=== PATIENT | male | born 1960 | race American Indian/Alaskan Native ===

== ENCOUNTER 2018-03-30 10:20 | Observation (INO) | payer MEDICAID, OTHER ==
[2018-03-30] MEDS ORDERED: Sodium Chloride 0.9% 1,000 ML IV ONE (10:33)
[2018-03-30] MEDS ORDERED: Sodium Chloride 0.9% 10 ML Syringe FLUSH PRN (10:35)
[2018-03-30] MEDS: Nitroglycerin 0.4 MG Tab.SL SL PRN ×3 (10:35→10:46)
[2018-03-30] MEDS: Nitroglycerin 0.4 MG Tab.SL ONE ×2 (10:35→10:43)
[2018-03-30] MEDS ORDERED: Sodium Chloride 0.9% 2.5 ML Syringe FLUSH PRN (10:35)
--- NOTE | 2018-03-30 10:40 | EDM.PDOC ---
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 He did take his aspirin today and states that the ambulance crew gave him for 5 tablets of aspirin to chew Patient was diaphoretic on admission Patient denies being diabetic he denies any difficulty chewing or swallowing denies have any cold fever or flulike symptoms Denies having any diarrhea Review of Systems: As per history of present illness and below otherwise all systems reviewed and negative. Past medical history: As per history of present illness and as reviewed below otherwise noncontributory. Surgical history: As per history of present illness and as reviewed below otherwise noncontributory. Social history: No reported history of drug or alcohol abuse. Family history: As per history of present illness and as reviewed below otherwise noncontributory. Physical exam: Alert and oriented male answering questions appropriately in full sentences without shortness of breath. Nontoxic in appearance, is anxious. HEENT: Atraumatic, normocehpalic, pupils reactive, negative for conjunctival pallor or scleral icterus, mucous membranes moist, throat clear, neck supple, nontender, trachea midline. Panic membranes without erythema. Oral mucosa is moist. Lungs: Clear to auscultation, breath sounds equal bilaterally, chest non tender. Heart: S1S2, regular, negative for clicks, rubs, or JVD. Abdomen: Soft, nondistended, nontender. Negative for masses or hepatossplenmegaly. Negative for costovertebral tenderness. Pelvis: Stable nontender. Genitourinary: Deferred. Rectal: Deferred Extremities: Atraumatic, negative for cords or calf pain. Neurovascular unremarkable. Neuro: Awake, alert, oriented. Cranial nerves II through XII unremarkable. Cerebellum unremarkable. Motor and sensory unremarkable throughout. Exam nonfocal. Patient again is reporting feeling tingly having difficulty breathing. The pressure has elevated 180s over 110 second Nitrostat given and patient's blood pressure has reduced . Have place Nitrobid on his chest. Second EKG has improved slightly sinus rhythm 1 PVCs right bundle branch block. Blood pressure continues to rise. Labetalol was ordered and reponse was blood pressure with diastolic 90's. Have discussed this case with Dr. Miller who is agreeable for observation on telemetry. Diagnostics: []CBC CMP troponin pace EKG oxygen chest x-ray Therapeutics: []Nitrostat 0.4 sublingual X3 Nitrobid Labetalol 20 IV Telemetry Impression: []Hypertension Plan: []Refer to observation Definitive disposition and diagnosis as appropriate pending reevaluation and review of above. Onset: Today, Sudden Location: Reports: Chest Quality: Reports: Pressure Severity: Moderate Improves with: Reports: None Worsens with: Reports: None Associated Symptoms: Reports: Diaphoresis, Shortness of Breath, Weakness - Related Data Allergies Allergy/AdvReac Type Severity Reaction Status Date / Time No Known Allergies Allergy Verified 03/30/18 10:42 ED ROS GENERAL - Review of Systems Review Of Systems: ROS reveals no pertinent complaints other than HPI. ED EXAM, GENERAL - Physical Exam Exam: See Below (See dictation) Course - Vital Signs Last Recorded V/S: Last Vital Signs Temp 37.7 C 03/30/18 10:29 Pulse 85 03/30/18 11:33 Resp 16 03/30/18 11:33 BP 156/106 H 03/30/18 11:33 Pulse Ox 98 03/30/18 11:33 - Orders/Labs/Meds Orders: Active Orders 24 hr Category Date Time Status Patient Status [ADT] Stat ADT 03/30/18 12:08 Active Cardiac Monitoring [RC] . DIRECTED Care 03/30/18 10:35 Active EKG Documentation Completion [RC] STAT Care 03/30/18 10:35 Active EKG Documentation Completion [RC] STAT Care 03/30/18 10:47 Active Oxygen Therapy [RC] ASDIRECTED Care 03/30/18 10:35 Active Pulse Oximetry [RC] ASDIRECTED Care 03/30/18 10:35 Active Telemetry Monitoring [Cardiac Monitoring] [RC] . Care 03/30/18 12:09 Active DIRECTED UA W/MICROSCOPIC [URIN] Stat Lab 03/30/18 10:32 Ordered Sodium Chloride 0.9% [Saline Flush] Med 03/30/18 10:35 Active 10 ml FLUSH ASDIRECTED PRN Sodium Chloride 0.9% [Saline Flush] Med 03/30/18 10:35 Active 2.5 ml FLUSH ASDIRECTED PRN Saline Lock Insert [OM.PC] Stat Oth 03/30/18 10:35 Ordered Medication Orders Sodium Chloride (Saline Flush) 10 ml FLUSH ASDIRECTED PRN PRN Reason: Keep Vein Open Last Admin: 03/30/18 10:38 Dose: 10 ml Sodium Chloride (Saline Flush) 2.5 ml FLUSH ASDIRECTED PRN PRN Reason: Keep Vein Open Last Admin: 03/30/18 10:38 Dose: 2.5 ml Labs: Laboratory Tests 03/30/18 03/30/18 03/30/18 Range/Units 10:32 10:45 10:45 WBC 6.07 (4.0-11.0) K/uL RBC 4.91 (4.50-5.90) M/uL Hgb 15.0 (13.0-17.0) g/dL Hct 42.4 (38.0-50.0) % MCV 86.4 (80.0-98.0) fL MCH 30.5 (27.0-32.0) pg MCHC 35.4 (31.0-37.0) g/dL RDW Std Deviation 39.6 (28.0-62.0) fl RDW Coeff of Codey 13 (11.0-15.0) % Plt Count 188 (150-400) K/uL MPV 9.70 (7.40-12.00) fL Neut % (Auto) 73.4 (48.0-80.0) % Lymph % (Auto) 19.3 (16.0-40.0) % Converse % (Auto) 6.9 (0.0-15.0) % Eos % (Auto) 0.2 (0.0-7.0) % Baso % (Auto) 0.2 (0.0-1.5) % Neut # (Auto) 4.5 (1.4-5.7) K/uL Lymph # (Auto) 1.2 (0.6-2.4) K/uL Converse # (Auto) 0.4 (0.0-0.8) K/uL Eos # (Auto) 0.0 (0.0-0.7) K/uL Baso # (Auto) 0.0 (0.0-0.1) K/uL Nucleated RBC % 0.0 /100WBC Nucleated RBCs # 0 K/uL INR 1.18 Sodium (136-148) mmol/L Potassium (3.5-5.1) mmol/L Chloride (98-107) mmol/L Carbon Dioxide (21.0-32.0) mmol/L BUN (7.0-18.0) mg/dL Creatinine (0.8-1.3) mg/dL Est Cr Clr Drug Dosing mL/min Estimated GFR (MDRD) ml/min Glucose (74-106) mg/dL Calcium (8.5-10.1) mg/dL Total Bilirubin (0.2-1.0) mg/dL AST (15-37) IU/L ALT (14-63) IU/L Alkaline Phosphatase (46-116) U/L Troponin I (0.000-0.056) ng/mL Total Protein (6.4-8.2) g/dL Albumin (3.4-5.0) g/dL Globulin (2.0-3.5) g/dL Albumin/Globulin Ratio (1.3-2.8) Amylase (25-115) U/L Lipase (73-393) U/L Urine Color YELLOW Urine Appearance CLEAR Urine pH 5.5 (5.0-8.0) Ur Specific Botkins 1.020 (1.001-1.035) Urine Protein NEGATIVE (NEGATIVE) mg/dL Urine Glucose (UA) NEGATIVE (NEGATIVE) mg/dL Urine Ketones NEGATIVE (NEGATIVE) mg/dL Urine Occult Blood TRACE-INTACT (NEGATIVE) Urine Nitrite NEGATIVE (NEGATIVE) Urine Bilirubin NEGATIVE (NEGATIVE) Urine Urobilinogen 0.2 (<2.0) EU/dL Ur Leukocyte Esterase NEGATIVE (NEGATIVE) Urine RBC 0-2 (0-2/HPF) Urine WBC 0-1 (0-5/HPF) Ur Epithelial Cells RARE (NONE-FEW) Amorphous Sediment NOT SEEN (NEGATIVE) Urine Bacteria NOT SEEN (NEGATIVE) Urine Mucus NOT SEEN (NONE-MOD) 03/30/18 Range/Units 10:45 WBC (4.0-11.0) K/uL RBC (4.50-5.90) M/uL Hgb (13.0-17.0) g/dL Hct (38.0-50.0) % MCV (80.0-98.0) fL MCH (27.0-32.0) pg MCHC (31.0-37.0) g/dL RDW Std Deviation (28.0-62.0) fl RDW Coeff of Codey (11.0-15.0) % Plt Count (150-400) K/uL MPV (7.40-12.00) fL Neut % (Auto) (48.0-80.0) % Lymph % (Auto) (16.0-40.0) % Converse % (Auto) (0.0-15.0) % Eos % (Auto) (0.0-7.0) % Baso % (Auto) (0.0-1.5) % Neut # (Auto) (1.4-5.7) K/uL Lymph # (Auto) (0.6-2.4) K/uL Converse # (Auto) (0.0-0.8) K/uL Eos # (Auto) (0.0-0.7) K/uL Baso # (Auto) (0.0-0.1) K/uL Nucleated RBC % /100WBC Nucleated RBCs # K/uL INR Sodium 142 (136-148) mmol/L Potassium 4.2 (3.5-5.1) mmol/L Chloride 107 (98-107) mmol/L Carbon Dioxide 24.7 (21.0-32.0) mmol/L BUN 12 (7.0-18.0) mg/dL Creatinine 1.3 (0.8-1.3) mg/dL Est Cr Clr Drug Dosing 62.69 mL/min Estimated GFR (MDRD) 56.9 ml/min Glucose 105 (74-106) mg/dL Calcium 8.6 (8.5-10.1) mg/dL Total Bilirubin 0.9 (0.2-1.0) mg/dL AST 22 (15-37) IU/L ALT 42 (14-63) IU/L Alkaline Phosphatase 103 (46-116) U/L Troponin I < 0.050 (0.000-0.056) ng/mL Total Protein 6.7 (6.4-8.2) g/dL Albumin 3.5 (3.4-5.0) g/dL Globulin 3.2 (2.0-3.5) g/dL Albumin/Globulin Ratio 1.1 L (1.3-2.8) Amylase 39 (25-115) U/L Lipase 153 (73-393) U/L Urine Color Urine Appearance Urine pH (5.0-8.0) Ur Specific Botkins (1.001-1.035) Urine Protein (NEGATIVE) mg/dL Urine Glucose (UA) (NEGATIVE) mg/dL Urine Ketones (NEGATIVE) mg/dL Urine Occult Blood (NEGATIVE) Urine Nitrite (NEGATIVE) Urine Bilirubin (NEGATIVE) Urine Urobilinogen (<2.0) EU/dL Ur Leukocyte Esterase (NEGATIVE) Urine RBC (0-2/HPF) Urine WBC (0-5/HPF) Ur Epithelial Cells (NONE-FEW) Amorphous Sediment (NEGATIVE) Urine Bacteria (NEGATIVE) Urine Mucus (NONE-MOD) Meds: Medications Generic Name Dose Route Start Last Admin Trade Name Freq PRN Reason Stop Dose Admin Sodium Chloride 10 ml 03/30/18 10:35 03/30/18 10:38 Saline Flush FLUSH 10 ml ASDIRECTED PRN Administration Keep Vein Open Sodium Chloride 2.5 ml 03/30/18 10:35 03/30/18 10:38 Saline Flush FLUSH 2.5 ml ASDIRECTED PRN Administration Keep Vein Open Discontinued Medications Generic Name Dose Route Start Last Admin Trade Name Freq PRN Reason Stop Dose Admin Sodium Chloride 1,000 mls @ 999 mls/hr 03/30/18 10:33 03/30/18 10:37 Normal Saline IV 03/30/18 11:33 999 mls/hr STAT ONE Administration Labetalol HCl 20 mg 03/30/18 11:01 03/30/18 11:07 Normodyne IVPUSH 03/30/18 11:02 20 mg NOW ONE Administration Protocol Nitroglycerin Confirm 03/30/18 10:33 03/30/18 10:43 Nitrostat Administered 03/30/18 10:34 Not Given Dose 0.4 mg .ROUTE .STK-MED ONE Nitroglycerin 0.4 mg 03/30/18 10:37 03/30/18 10:46 Nitrostat SL 0.4 mg Q5M PRN Administration Chest Pain Nitroglycerin 1 gm 03/30/18 10:52 03/30/18 11:00 Nitro-Bid 2% TOP 03/30/18 10:53 1 gm ONETIME ONE Administration Departure - Departure Time of Disposition: 12:35 Disposition: Refer to Observation Condition: Good Clinical Impression: Hypertensive heart disease Qualifiers: Heart failure presence: unspecified whether heart failure present Qualified Code(s): I11.9 - Hypertensive heart disease without heart failure Forms: ED Department Discharge - My Orders Last 24 Hours: My Active Orders 03/30/18 10:32 UA W/MICROSCOPIC [URIN] Stat 03/30/18 10:35 Cardiac Monitoring [RC] . DIRECTED EKG Documentation Completion [RC] STAT Oxygen Therapy [RC] ASDIRECTED Pulse Oximetry [RC] ASDIRECTED Sodium Chloride 0.9% [Saline Flush] 10 ml FLUSH ASDIRECTED PRN Sodium Chloride 0.9% [Saline Flush] 2.5 ml FLUSH ASDIRECTED PRN Saline Lock Insert [OM.PC] Stat 03/30/18 10:47 EKG Documentation Completion [RC] STAT 03/30/18 12:08 Patient Status [ADT] Stat 03/30/18 12:09 Telemetry Monitoring [Cardiac Monitoring] [RC] . DIRECTED - Assessment/Plan Last 24 Hours: My Active Orders 03/30/18 10:32 UA W/MICROSCOPIC [URIN] Stat 03/30/18 10:35 Cardiac Monitoring [RC] . DIRECTED EKG Documentation Completion [RC] STAT Oxygen Therapy [RC] ASDIRECTED Pulse Oximetry [RC] ASDIRECTED Sodium Chloride 0.9% [Saline Flush] 10 ml FLUSH ASDIRECTED PRN Sodium Chloride 0.9% [Saline Flush] 2.5 ml FLUSH ASDIRECTED PRN Saline Lock Insert [OM.PC] Stat 03/30/18 10:47 EKG Documentation Completion [RC] STAT 03/30/18 12:08 Patient Status [ADT] Stat 03/30/18 12:09 Telemetry Monitoring [Cardiac Monitoring] [RC] . DIRECTED
[2018-03-30] MEDS ORDERED: Nitroglycerin 2% Oint 1 GM UD Packet TOP ONE (10:52)
[2018-03-30] MEDS ORDERED: Labetalol 20 MG/4 ML Syringe IVPUSH ONE (11:01)
[2018-03-30 11:24] LABS: CHLORIDE,CL 107 mmol/L (98-107); SODIUM,NA 142 mmol/L (136-148)
--- NOTE | 2018-03-30 11:37 | CR ---
EXAMINATION: Portable chest radiograph. HISTORY: Chest pressure. FINDINGS: The trachea is midline. The cardiomediastinal silhouette is within normal limits. No pulmonary infilt rates, effusions or pneumothorax. Osseous structures appear unremarkable. IMPRESSION: No acute cardiopulmonary process.
--- NOTE | 2018-03-30 11:45 | CT ---
EXAMINATION: Non contrast CT head. Coronal and sagittal reformats. HISTORY: Pain FINDINGS: No evidence of intra or extra axial hemorrhage, mass, midline shift, hydrocephalus or edema. No hypoattenuation changes in the major vascular territories to suggest acute infarct. No abnormal intracranial calcifications are detected. No evidence of substantial vascular calcificat ions. Paranasal sinuses and mastoid air cells are well aerated without substantial findings. Pituitary fossa appears unremarkable. Calvarium is intact. No evidence of skull fracture. IMPRESSION: No acute intracranial findings.
[2018-03-30] MEDS ORDERED: Ondansetron 4 MG Tab.DIS PO PRN (13:00)
[2018-03-30] MEDS ORDERED: Acetaminophen 325 MG Tab PO PRN (13:00)
[2018-03-30] MEDS ORDERED: Enoxaparin 40 MG/0.4 ML Syringe SUBCUT SCH (13:00)
--- NOTE | 2018-03-30 13:10 | PCM.HP ---
H&P History of Present Illness - General Date of Service: 03/30/18 Admit Problem/Dx: Admission Diagnosis/Problem Admission Diagnosis/Problem Hypertensive crisis Source of Information: Patient History Limitations: Reports: No Limitations - History of Present Illness Initial Comments - Free Text/Narative: This 57 year old male with pmh of NM January 06, 2018, CAD and HTN presented to the ED today with concerns of not feeling right, tingling to his arms, sweating , and midsternal chest pressure which radiated to his back. He reports on January 06 he started having back pain with shortness of breath and went to the ED. 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 He reports having 5 stents placed. He was released and full released to return to work. He decided to come to [facility] over the summer and make some money. He has been here two weeks now. He reports he has felt well up until today. He does reports loss of endurance and stamina since NM, but otherwise feeling well. Today he was at work, outside wearing FR clothing, feeling fatigued, sweating, and "like I needed to eat and drink something." He started having lightheadedness, tingling to his arms and chest along with mild chest pressure with radiation to his back. 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 he denies visual changes, headache , fevers, chills or abdominal pain. No urinary symptoms and no diarrhea. He denies DM. He denies alcohol, tobacco or recreational drug use since 1984. In the ED labwork all WNL. Troponin negative. INR 1.18. UA negative CXR negative Head CT negative. BP on arrival was noted at 181/110, He was given Nitro, Nitro paste and labetolol, BP down to 150/100. He will be admitted for observation with hypertension and chest pain. - Related Data Allergies/Adverse Reactions: Allergies Allergy/AdvReac Type Severity Reaction Status Date / Time No Known Allergies Allergy Verified 03/30/18 10:42 Home Medications: Home Meds Furosemide [Lasix] 20 mg PO DAILY 03/30/18 [History] Metoprolol Succinate [Toprol XL] 12.5 mg PO DAILY 03/30/18 [History] atorvaSTATin [Lipitor] 40 mg PO DAILY 03/30/18 [History] Past Medical History Cardiovascular History: Reports: CAD, High Cholesterol, Hypertension, NM, Stents. Denies: Afib, Blood Clots/VTE/DVT Respiratory History: Reports: None. Denies: Asthma, COPD, PE Gastrointestinal History: Reports: None Musculoskeletal History: Reports: None Psychiatric History: Reports: None Endocrine/Metabolic History: Reports: Hypothyroidism, Obesity/BMI 30+. Denies: Diabetes, Type II - Infectious Disease History Infectious Disease History: Reports: Mumps - Past Surgical History Musculoskeletal Surgical History: Reports: Arthroscopic Knee Social & Family History - Family History Family Medical History: Noncontributory - Tobacco Use Smoking Status *Q: Never Smoker Second Hand Smoke Exposure: No - Caffeine Use Caffeine Use: Reports: Coffee Other Caffeine Use: used 24 oz of coffee today and normally doesn't use it. - Recreational Drug Use Recreational Drug Use: No - Living Situation & Occupation Occupation: Employed Social History Comment: Here in [place] working, upon discharge plans on returning to [place] for good. H&P Review of Systems - Review of Systems: Review Of Systems: See Below General: Reports: Malaise, Weakness (generalized), Fatigue. Denies: Fever, Chills HEENT: Reports: No Symptoms. Denies: Headaches, Sinus Congestion, Sore Throat, Vertigo, Visual Changes Cardiovascular: Reports: Chest Pain, Lightheadedness. Denies: Palpitations, Dyspnea on Exertion, Orthopnea, Edema, Syncope Gastrointestinal: Reports: No Symptoms. Denies: Abdominal Pain, Black Stool, Bloody Stool, Decreased Appetite, Nausea, Vomiting Genitourinary: Reports: No Symptoms. Denies: Dysuria, Frequency, Burning Musculoskeletal: Reports: No Symptoms. Denies: Neck Pain Skin: Reports: No Symptoms Psychiatric: Reports: Anxiety (regarding currently situation and not having much money. ) Neurological: Reports: No Symptoms Hematologic/Lymphatic: Reports: No Symptoms Immunologic: Reports: No Symptoms Exam - Exam Exam: See Below - Vital Signs Vital Signs: Last Vital Signs Temp 99.9 F 03/30/18 10:29 Pulse 85 03/30/18 11:33 Resp 16 03/30/18 11:33 BP 156/106 H 03/30/18 11:33 Pulse Ox 98 03/30/18 11:33 Weight: 92.986 kg - Exam General: Alert, Oriented, Cooperative, Other (slightly clammy to the touch. reports feeling slightly diaphoretic.) HEENT: Conjunctiva Clear, Mucosa Moist & [place], Posterior Pharynx Clear Neck: Supple, Trachea Midline, +2 Carotid Pulse wo Bruit, Full Range of Motion. No: JVD Lungs: Clear to Auscultation, Normal Respiratory Effort Cardiovascular: Regular Rate, Regular Rhythm, Other (currently chest pain free, no shortness of breath. ). No: Systolic Murmur GI/Abdominal Exam: Normal Bowel Sounds, Soft, Non-Tender, No Organomegaly, No Distention, No Abnormal Bruit, No Mass, Pelvis Stable Back Exam: Normal Inspection, Full Range of Motion, NT Extremities: Normal Inspection, Normal Range of Motion, Non-Tender, No Pedal Edema, Normal Capillary Refill Neurological: Cranial Nerves Intact Neuro Extensive - Mental Status: Alert, Oriented x3 Neuro Extensive - Motor, Sensory, Reflexes: CN II-XII Intact Psychiatric: Alert, Normal Affect, Normal Mood - Patient Data Lab Results Last 24 hrs: Laboratory Results - last 24 hr 03/30/18 03/30/18 03/30/18 Range/Units 10:32 10:45 10:45 WBC 6.07 (4.0-11.0) K/uL RBC 4.91 (4.50-5.90) M/uL Hgb 15.0 (13.0-17.0) g/dL Hct 42.4 (38.0-50.0) % MCV 86.4 (80.0-98.0) fL MCH 30.5 (27.0-32.0) pg MCHC 35.4 (31.0-37.0) g/dL RDW Std Deviation 39.6 (28.0-62.0) fl RDW Coeff of [place] 13 (11.0-15.0) % Plt Count 188 (150-400) K/uL MPV 9.70 (7.40-12.00) fL Neut % (Auto) 73.4 (48.0-80.0) % Lymph % (Auto) 19.3 (16.0-40.0) % Ida % (Auto) 6.9 (0.0-15.0) % Eos % (Auto) 0.2 (0.0-7.0) % Baso % (Auto) 0.2 (0.0-1.5) % Neut # (Auto) 4.5 (1.4-5.7) K/uL Lymph # (Auto) 1.2 (0.6-2.4) K/uL Ida # (Auto) 0.4 (0.0-0.8) K/uL Eos # (Auto) 0.0 (0.0-0.7) K/uL Baso # (Auto) 0.0 (0.0-0.1) K/uL Nucleated RBC % 0.0 /100WBC Nucleated RBCs # 0 K/uL INR 1.18 Sodium (136-148) mmol/L Potassium (3.5-5.1) mmol/L Chloride (98-107) mmol/L Carbon Dioxide (21.0-32.0) mmol/L BUN (7.0-18.0) mg/dL Creatinine (0.8-1.3) mg/dL Est Cr Clr Drug Dosing mL/min Estimated GFR (MDRD) ml/min Glucose (74-106) mg/dL Calcium (8.5-10.1) mg/dL Total Bilirubin (0.2-1.0) mg/dL AST (15-37) IU/L ALT (14-63) IU/L Alkaline Phosphatase (46-116) U/L Troponin I (0.000-0.056) ng/mL Total Protein (6.4-8.2) g/dL Albumin (3.4-5.0) g/dL Globulin (2.0-3.5) g/dL Albumin/Globulin Ratio (1.3-2.8) Amylase (25-115) U/L Lipase (73-393) U/L Urine Color YELLOW Urine Appearance CLEAR Urine pH 5.5 (5.0-8.0) Ur Specific [place] 1.020 (1.001-1.035) Urine Protein NEGATIVE (NEGATIVE) mg/dL Urine Glucose (UA) NEGATIVE (NEGATIVE) mg/dL Urine Ketones NEGATIVE (NEGATIVE) mg/dL Urine Occult Blood TRACE-INTACT (NEGATIVE) Urine Nitrite NEGATIVE (NEGATIVE) Urine Bilirubin NEGATIVE (NEGATIVE) Urine Urobilinogen 0.2 (<2.0) EU/dL Ur Leukocyte Esterase NEGATIVE (NEGATIVE) Urine RBC 0-2 (0-2/HPF) Urine WBC 0-1 (0-5/HPF) Ur Epithelial Cells RARE (NONE-FEW) Amorphous Sediment NOT SEEN (NEGATIVE) Urine Bacteria NOT SEEN (NEGATIVE) Urine Mucus NOT SEEN (NONE-MOD) 03/30/18 Range/Units 10:45 WBC (4.0-11.0) K/uL RBC (4.50-5.90) M/uL Hgb (13.0-17.0) g/dL Hct (38.0-50.0) % MCV (80.0-98.0) fL MCH (27.0-32.0) pg MCHC (31.0-37.0) g/dL RDW Std Deviation (28.0-62.0) fl RDW Coeff of [place] (11.0-15.0) % Plt Count (150-400) K/uL MPV (7.40-12.00) fL Neut % (Auto) (48.0-80.0) % Lymph % (Auto) (16.0-40.0) % Ida % (Auto) (0.0-15.0) % Eos % (Auto) (0.0-7.0) % Baso % (Auto) (0.0-1.5) % Neut # (Auto) (1.4-5.7) K/uL Lymph # (Auto) (0.6-2.4) K/uL Ida # (Auto) (0.0-0.8) K/uL Eos # (Auto) (0.0-0.7) K/uL Baso # (Auto) (0.0-0.1) K/uL Nucleated RBC % /100WBC Nucleated RBCs # K/uL INR Sodium 142 (136-148) mmol/L Potassium 4.2 (3.5-5.1) mmol/L Chloride 107 (98-107) mmol/L Carbon Dioxide 24.7 (21.0-32.0) mmol/L BUN 12 (7.0-18.0) mg/dL Creatinine 1.3 (0.8-1.3) mg/dL Est Cr Clr Drug Dosing 62.69 mL/min Estimated GFR (MDRD) 56.9 ml/min Glucose 105 (74-106) mg/dL Calcium 8.6 (8.5-10.1) mg/dL Total Bilirubin 0.9 (0.2-1.0) mg/dL AST 22 (15-37) IU/L ALT 42 (14-63) IU/L Alkaline Phosphatase 103 (46-116) U/L Troponin I < 0.050 (0.000-0.056) ng/mL Total Protein 6.7 (6.4-8.2) g/dL Albumin 3.5 (3.4-5.0) g/dL Globulin 3.2 (2.0-3.5) g/dL Albumin/Globulin Ratio 1.1 L (1.3-2.8) Amylase 39 (25-115) U/L Lipase 153 (73-393) U/L Urine Color Urine Appearance Urine pH (5.0-8.0) Ur Specific [place] (1.001-1.035) Urine Protein (NEGATIVE) mg/dL Urine Glucose (UA) (NEGATIVE) mg/dL Urine Ketones (NEGATIVE) mg/dL Urine Occult Blood (NEGATIVE) Urine Nitrite (NEGATIVE) Urine Bilirubin (NEGATIVE) Urine Urobilinogen (<2.0) EU/dL Ur Leukocyte Esterase (NEGATIVE) Urine RBC (0-2/HPF) Urine WBC (0-5/HPF) Ur Epithelial Cells (NONE-FEW) Amorphous Sediment (NEGATIVE) Urine Bacteria (NEGATIVE) Urine Mucus (NONE-MOD) Result Diagrams: 03/30/18 10:45 03/30/18 10:45 EKG INTERPRETATION EKG Date: 03/30/18 Rhythm: NSR Rate (Beats/Min): 86 P-Wave: Present QRS: RBBB ST-T: Normal QT: Normal Comparison: NA - No Prior EKG *Q Meaningful Use (ADM) - VTE Risk Assess *Q Each Risk Factor Represents 1 Point: Age 41 - 59 years, Obesity ( BMI > 25 kg/m2 ) Total Score 1 Point Risk Factors: 2 Each Risk Factor Represents 2 Points: None Total Score 2 Point Risk Factors: 0 Each Risk Factor Represents 3 Points: None Total Score 3 Point Risk Factors: 0 Each Risk Factor Represents 5 Points: None Total Score 5 Point Risk Factors: 0 Venous Thromboembolism Risk Factor Score *Q: 2 - Problem List (1) Chest pain SNOMED Code(s): 01993802 ICD Code: R07.9 - CHEST PAIN, UNSPECIFIED Status: Acute Current Visit: Yes (2) Hypertensive urgency SNOMED Code(s): 840264322 ICD Code: I16.0 - HYPERTENSIVE URGENCY Status: Acute Current Visit: Yes (3) HTN (hypertension) SNOMED Code(s): 15582417 ICD Code: I10 - ESSENTIAL (PRIMARY) HYPERTENSION Status: Chronic Current Visit: Yes Qualifiers: Hypertension type: essential hypertension Qualified Code(s): I10 - Essential (primary) hypertension (4) CAD (coronary artery disease) SNOMED Code(s): 03784410 ICD Code: I25.10 - ATHSCL HEART DISEASE OF [place] CORONARY ARTERY W/O ANG PCTRS Status: Chronic Current Visit: Yes Qualifiers: Coronary Disease-Associated Artery/Lesion type: [place] artery [place] vs. transplanted heart: [place] heart Associated angina: without angina Qualified Code(s): I25.10 - Atherosclerotic heart disease of [place] coronary artery without angina pectoris (5) Hx of myocardial infarction SNOMED Code(s): 330750598 ICD Code: I25.2 - OLD MYOCARDIAL INFARCTION Status: Chronic Current Visit : Yes (6) Hx of heart artery stent SNOMED Code(s): 421318705, 597828196 ICD Code: Z95.5 - PRESENCE OF CORONARY ANGIOPLASTY IMPLANT AND GRAFT Status : Chronic Current Visit: Yes (7) Hypercholesterolemia SNOMED Code(s): 58976316 ICD Code: E78.00 - PURE HYPERCHOLESTEROLEMIA, UNSPECIFIED Status: Chronic Current Visit: Yes (8) Hypothyroidism SNOMED Code(s): 21171691 ICD Code: E03.9 - HYPOTHYROIDISM, UNSPECIFIED Status: Chronic Current Visit: Yes Qualifiers: Hypothyroidism type: unspecified Qualified Code(s): E03.9 - Hypothyroidism , unspecified Problem List Initiated/Reviewed/Updated: Yes Orders Last 24hrs: Active Orders 24 hr Category Date Time Status Patient Status [ADT] Stat ADT 03/30/18 12:08 Active Cardiac Monitoring [RC] . DIRECTED Care 03/30/18 10:35 Active Communication Order [RC] ROUTINE Care 03/30/18 13:09 Ordered EKG Documentation Completion [RC] STAT Care 03/30/18 10:35 Active EKG Documentation Completion [RC] STAT Care 03/30/18 10:47 Active Intake and Output [RC] QSHIFT Care 03/30/18 13:00 Ordered Notify Provider Consults [RC] ASDIRECTED Care 03/30/18 12:59 Active Oxygen Therapy [RC] ASDIRECTED Care 03/30/18 10:35 Active Oxygen Therapy [RC] PRN Care 03/30/18 13:00 Ordered Pulse Oximetry [RC] ASDIRECTED Care 03/30/18 10:35 Active Telemetry Monitoring [Cardiac Monitoring] [RC] . Care 03/30/18 12:09 Active DIRECTED Telemetry Monitoring [Cardiac Monitoring] [RC] . Care 03/30/18 13:00 Ordered DIRECTED Up With Assistance [RC] ASDIRECTED Care 03/30/18 13:00 Ordered VTE/DVT Education [RC] PER UNIT ROUTINE Care 03/30/18 13:00 Ordered Vital Signs [RC] Q4H Care 03/30/18 13:00 Ordered Consult to Physician [CONS] Routine Cons 03/30/18 12:59 Active Heart Healthy Diet [DIET] Diet 03/30/18 Lunch Ordered TROPONIN I [CHEM] Q6H Lab 03/30/18 16:45 Ordered TROPONIN I [CHEM] Q6H Lab 03/30/18 22:45 Ordered UA W/MICROSCOPIC [URIN] Stat Lab 03/30/18 10:32 Ordered Acetaminophen [Tylenol] Med 03/30/18 13:00 Ordered 650 mg PO Q4H PRN Enoxaparin [Lovenox] Med 03/30/18 13:00 Ordered 40 mg SUBCUT Q24H Ondansetron [Zofran ODT] Med 03/30/18 13:00 Ordered 4 mg PO Q4H PRN Sodium Chloride 0.9% [Saline Flush] Med 03/30/18 10:35 Active 10 ml FLUSH ASDIRECTED PRN Sodium Chloride 0.9% [Saline Flush] Med 03/30/18 10:35 Active 2.5 ml FLUSH ASDIRECTED PRN Saline Lock Insert [OM.PC] Stat Oth 03/30/18 10:35 Ordered Resuscitation Status Routine Resus Stat 03/30/18 13:00 Ordered Medication Orders Acetaminophen (Tylenol) 650 mg PO Q4H PRN PRN Reason: Pain (mild 1-3) Enoxaparin Sodium (Lovenox) 40 mg SUBCUT Q24H LENY Ondansetron HCl (Zofran Odt) 4 mg PO Q4H PRN PRN Reason: nausea, able to take PO Sodium Chloride (Saline Flush) 10 ml FLUSH ASDIRECTED PRN PRN Reason: Keep Vein Open Last Admin: 03/30/18 10:38 Dose: 10 ml Sodium Chloride (Saline Flush) 2.5 ml FLUSH ASDIRECTED PRN PRN Reason: Keep Vein Open Last Admin: 03/30/18 10:38 Dose: 2.5 ml Assessment/Plan Comment:: This 57 year old male admitted with chest pain and hypertensive urgency 1. Chest pain: Now improved. Nitro paste in place. Will trend troponins and monitor on telemetry. Consult with Dr Nj due to recent NM and stenting. Awaiting records from [facility] in [facility]. 2. Hypertensive urgency: BP has improved slightly to 150/100s. Will monitor. Took all home medications today. Awaiting list. May need to make adjustments. 3. CAD: Continue Statin, ASA and Plavix. VTE prophylaxis: Lovenox. Dispo: 1-2 days pending improvement.
[2018-03-30] MEDS ORDERED: Heparin Sodium 5,000 Units/ML Vial IVPUSH ONE (18:29)
[2018-03-30] MEDS ORDERED: Heparin Sod,Pork In 0.45% Nacl 25,000 UNIT/500 ML IV.SOLN IV SCH (18:30)
[2018-03-30] MEDS ORDERED: Heparin Sodium 5,000 Units/ML Vial IV PRN (19:17)
--- NOTE | 2018-03-30 19:17 | CONS ---
DATE OF CONSULTATION: DATE OF : 1960 PRIMARY CARE PHYSICIAN: None PCP REASON FOR CONSULTATION: Chest pain. HISTORY OF PRESENT ILLNESS: This is a 57-year-old male, history of hypertension, hyperlipidemia, former smoking, who recently had an [place], status post PCI with 5 stents in December 2017. He lives increase [place], [place]. At that time, he had a history of chest pain and sweating, shortness of breath. He then was brought to an emergency room. When he was there, he was found to have a blockage and he receives 5 stents in one artery. He was not told that he has a blockage in the other arteries however and then he just got relieved for a job recently. He has been visiting [place] for 2-1/2 weeks, and when he finishes his job here, he will go back to [place]. However, this morning around 3:30 a.m. when he was about to start working, he started having similar symptoms like sweating, chest heaviness on the retrosternal area, no radiation, tingling, complaining shortness of breath while sitting. It lasted for 45 minutes, and then they called 911. He was brought to the emergency room. In the emergency room, his blood pressure initially was benedicto high to 181/111. He got a nitroglycerin patch as well as nitroglycerin pill. Currently, the blood pressure is down to 150/73. He is currently chest pain-free now. PAST MEDICAL HISTORY: Including recent heart attack, received cardiac stent of 5 stents in December 2017; however, the record is still unavailable. MEDICATIONS: The list of medications, the patient did not remember the list and the record from pharmacy is still pending as well. Medications pending, but he stated that he takes Plavix as well as aspirin. The list of medications is not available, and awaiting for pharmacy record. ALLERGIES: No known drug allergies. SOCIAL HISTORY: He was former smoker. No drug use. No alcoholic consumption. FAMILY HISTORY: Denies history of CAD in his family. PHYSICAL EXAMINATION: VITAL SIGNS: The initial blood pressure was 181/111, heart rate of 79, and O2 saturation 98% on room air, respirations 18, temperature is 36.7. HEENT: No pallor. No jaundice. No JVD. HEART: Normal S1 and S2. No murmur. LUNGS: Are clear. No wheezing. No crackles. ABDOMEN: Soft and nontender. Bowel sounds are present. No hepatosplenomegaly. No rebound tenderness. EXTREMITIES: Legs, no edema. INVESTIGATIONS: EKG shows right bundle-branch block pattern with ST abnormality in leads III and AVF. However, there is no previous EKG to compare. Prelim echo showed preserved ejection fraction. I could not appreciate any wall motion abnormalities, and there is no significant valvular heart disease. He has a grade 1 diastolic dysfunction. WBC 6, hematocrit of 42, hemoglobin of 15, platelets 188. INR is 1.1. Sodium 142, 4.2, chloride 107, bicarb 24, BUN 12, creatinine 1.3. Troponin, 1st one is negative. Urinalysis is negative. ASSESSMENT AND PLAN: This is a 57-year-old male who had a history of recent heart attack, received 5 stents in December 2017, history of hypertension, history of hyperlipidemia, former smoker, presented to the hospital with chest heaviness with a concern of a cardiac angina. He will be admitted in the hospital, and he need to be worked up for ACS and a cardiac enzymes need to be cycled. Currently, he is chest pain-free and he is on nitroglycerin patch. I will keep him on that and with the recent heart stent as well as a similar chest pain that he had when he had a heart attack. I have a concern that one of his stents may be blocked off. He needs ischemic workup, but I am leaning toward more repeat the angiogram to make sure the stent is still widely patent before he got discharged from the hospital. I will treat him as an unstable angina. I will start him on a heparin IV drip for ACS protocol and then cycle cardiac enzymes. EKG needs to be repeated in the morning, and the patient wanted to talk to his regarding the transfer because he is concerned about the expenses. Currently he is chest pain-free now. The transfer will be arranged in the morning. ANUM FERNANDEZ /[id number]
[2018-03-31] MEDS: Levothyroxine 88 MCG Tab PO SCH ×2 (01:31→06:57)
[2018-03-31] MEDS ORDERED: Ezetimibe 10 MG Tab PO SCH (02:00)
[2018-03-31] MEDS ORDERED: Furosemide 20 MG Tab PO SCH (02:00)
[2018-03-31] MEDS ORDERED: [UNRECOGNIZED DRUG - OTHER] PO SCH (02:00)
[2018-03-31] MEDS ORDERED: Potassium Chloride 10 MEQ Tab.ER PO SCH ×2 (02:00→15:00)
[2018-03-31] MEDS ORDERED: Metoprolol Succinate 25 MG Tab.ER PO SCH (02:00)
[2018-03-31] MEDS ORDERED: Aspirin 81 MG Tab.EC PO SCH (02:00)
[2018-03-31] MEDS ORDERED: atorvaSTATin 40 MG Tab PO SCH (02:00)
[2018-03-31] MEDS ORDERED: Clopidogrel 75 MG Tab PO SCH (02:00)
--- NOTE | 2018-03-31 09:59 | PCM.DCSUM1 ---
Discharge Summary - Hospital Course Brief History: This 57 year old male with pmh of IN January 06, 2018, CAD and HTN presented to the ED today with concerns of not feeling right, tingling to his arms, sweating, and midsternal chest pressure which radiated to his back. He reports on January 06 he started having back pain with shortness of breath and went to the ED. 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 He reports having 5 stents placed. He was released and full released to return to work. He decided to come to [facility] over the summer and make some money. He has been here two weeks now. He reports he has felt well up until today. He does reports loss of endurance and stamina since IN, but otherwise feeling well. Today he was at work, outside wearing FR clothing, feeling fatigued, sweating, and "like I needed to eat and drink something." He started having lightheadedness, tingling to his arms and chest along with mild chest pressure with radiation to his back. 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 he denies visual changes, headache, fevers, chills or abdominal pain. No urinary symptoms and no diarrhea. He denies DM. He denies alcohol, tobacco or recreational drug use since 1984. In the ED labwork all WNL. Troponin negative. INR 1.18. UA negative CXR negative Head CT negative. BP on arrival was noted at 181/110, He was given Nitro, Nitro paste and labetolol, BP down to 150/100. He will be admitted for observation with hypertension and chest pain. - Discharge Data Discharge Date: 03/31/18 Discharge Disposition: DC/Tfer to Acute Hospital 02 Condition: Fair - Discharge Diagnosis/Problem(s) (1) Chest pain SNOMED Code(s): 54712795 ICD Code: R07.9 - CHEST PAIN, UNSPECIFIED Status: Acute Current Visit: Yes (2) Hypertensive urgency SNOMED Code(s): 136073003 ICD Code: I16.0 - HYPERTENSIVE URGENCY Status: Acute Current Visit: Yes (3) HTN (hypertension) SNOMED Code(s): 99058264 ICD Code: I10 - ESSENTIAL (PRIMARY) HYPERTENSION Status: Chronic Current Visit: Yes Qualifiers: Hypertension type: essential hypertension Qualified Code(s): I10 - Essential (primary) hypertension (4) CAD (coronary artery disease) SNOMED Code(s): 83463931 ICD Code: I25.10 - ATHSCL HEART DISEASE OF [place] CORONARY ARTERY W/O ANG PCTRS Status: Chronic Current Visit: Yes Qualifiers: Coronary Disease-Associated Artery/Lesion type: [place] artery [place] vs. transplanted heart: [place] heart Associated angina: without angina Qualified Code(s): I25.10 - Atherosclerotic heart disease of [place] coronary artery without angina pectoris (5) Hx of myocardial infarction SNOMED Code(s): 030788634 ICD Code: I25.2 - OLD MYOCARDIAL INFARCTION Status: Chronic Current Visit : Yes (6) Hx of heart artery stent SNOMED Code(s): 554625195, 993625506 ICD Code: Z95.5 - PRESENCE OF CORONARY ANGIOPLASTY IMPLANT AND GRAFT Status : Chronic Current Visit: Yes (7) Hypercholesterolemia SNOMED Code(s): 23662790 ICD Code: E78.00 - PURE HYPERCHOLESTEROLEMIA, UNSPECIFIED Status: Chronic Current Visit: Yes (8) Hypothyroidism SNOMED Code(s): 53551452 ICD Code: E03.9 - HYPOTHYROIDISM, UNSPECIFIED Status: Chronic Current Visit: Yes Qualifiers: Hypothyroidism type: unspecified Qualified Code(s): E03.9 - Hypothyroidism , unspecified - Patient Summary/Data Consults: Consultations 03/30/18 12:59 Consult to Physician [CONS] Routine - Patient Instructions Diet: NPO Activity: No Strenuous Activities - Discharge Plan Home Medications: Home Meds Aspirin [Halfprin] 81 mg PO DAILY 03/30/18 [History] Clopidogrel [Plavix] 75 mg PO DAILY 03/30/18 [History] Ezetimibe 10 mg PO DAILY 03/30/18 [History] Furosemide [Lasix] 20 mg PO DAILY 03/30/18 [History] Levothyroxine [Synthroid] 88 mcg PO ACBREAKFAST 03/30/18 [History] Metoprolol Succinate [Toprol XL] 12.5 mg PO DAILY 03/30/18 [History] Patient's Own Medication [Ptom] 1 tab PO DAILY 03/30/18 [History] Potassium Chloride 10 meq PO BID 03/30/18 [History] atorvaSTATin [Lipitor] 40 mg PO DAILY 03/30/18 [History] Heparin Sodium 1,000 - 2,000 units IV Q6H PRN vial 03/31/18 [Rx] Referrals: PCP,None [Primary Care Provider] - - Discharge Summary/Plan Comment DC Time >30 min.: Yes (more than 1 hr spent discussing transfer with patient and consults.) Discharge Summary/Plan Comment: Discharge Diagnoses: Unstable Angina Hx STEMI with PCI x 5 stents to RCA 01/06/2018 30-40% LAD stenosis HTN CAD Hypercholesterolemia Anxiety Hypothyroidism Cristian was admitted with concerns of chest pain and elevated blood pressure. Nitrobid was placed, which relieved chest pain and lowered BP to 130-140/80- 90s. Troponins remained negative. Dr Nj consulted yesterday on admission secondary to recent STEMI with 5 drug eluding stents placed to RCA on January 06 2018 in [place], [place]. Records reviewed from [facility] in [place], [place]. Complete obstruction of RCA noted, 5 stents placed, LAD noted to have 30-40 % stenosis There is concern for unstable angina and the need for urgent ischemic work up including stress test and possible angiogram prior to safe discharge home. Around 0700 this morning, Dr Nj and myself discussed transfer with patient for over 30 minutes and at that time patient was declining transfer, stating "I just want to go home." Meaning he wanted to be discharged so he would be able to drive with family back to [facility] and received medical care there. We discussed with him the risks of this including significant cardiac impairment and even , with he verbally understood and continued to want discharge, but was willing to stay for 48 hours to have had Heparin therapy for that time, per recommendation of Dr. Nj, Cardiology. arrived and Cristian had time to talk with family and his [place] leaders back in [place] regarding payment of this hospital stay and transfer. He now is wanting transfer for further evaluation and ischemic workup. Dr Miller present for this conversation. He currently is on Heprain drip and has received all home medications at 0200, which is when he takes them. Including ASA and Plavix. He reports slight chest discomfort this morning. Troponins remain negative. Continues to confirm DNR status, in room and witnessed this as well along with Dr Miller. But he is wanting intervention currently with further workup and angiogram. Dr Nj contacted Dr Ta, Quarter Inspector at [facility] in [facility]. He has kindly accepted patient to tele bed for transfer. Will arrange ground transfer at this time. Patient aware and continues to agree with treatment plan. - General Info Date of Service: 03/31/18 Admission Dx/Problem (Free Text: Admission Diagnosis/Problem Admission Diagnosis/Problem Hypertensive crisis - Review of Systems General: Reports: No Symptoms. Denies: Fever, Weakness, Fatigue, Malaise HEENT: Reports: No Symptoms. Denies: Headaches, Sore Throat, Visual Changes Pulmonary: Denies: Shortness of Breath, Cough, Sputum Cardiovascular: Reports: Chest Pain (slight discomfort, midsternally this am.) Gastrointestinal: Reports: No Symptoms. Denies: Abdominal Pain, Nausea, Vomiting Genitourinary: Reports: No Symptoms. Denies: Dysuria, Frequency, Burning Musculoskeletal: Reports: No Symptoms Neurological: Reports: No Symptoms Psychiatric: Reports: No Symptoms - Patient Data Vitals - Most Recent: Last Vital Signs Temp 98.6 F 03/31/18 04:00 Pulse 70 03/31/18 04:00 Resp 18 03/31/18 04:00 BP 135/88 03/31/18 04:00 Pulse Ox 95 03/31/18 04:00 Weight - Most Recent: 92.986 kg I&O - Last 24 hours: Intake & Output 03/30/18 03/31/18 03/31/18 22:59 06:59 14:59 Intake Total 150 Output Total 1400 Balance -1250 Lab Results - Last 24 hrs: Laboratory Results - last 24 hr 03/30/18 03/30/18 03/30/18 Range/Units 10:32 10:45 10:45 WBC 6.07 (4.0-11.0) K/uL RBC 4.91 (4.50-5.90) M/uL Hgb 15.0 (13.0-17.0) g/dL Hct 42.4 (38.0-50.0) % MCV 86.4 (80.0-98.0) fL MCH 30.5 (27.0-32.0) pg MCHC 35.4 (31.0-37.0) g/dL RDW Std Deviation 39.6 (28.0-62.0) fl RDW Coeff of Codey 13 (11.0-15.0) % Plt Count 188 (150-400) K/uL MPV 9.70 (7.40-12.00) fL Neut % (Auto) 73.4 (48.0-80.0) % Lymph % (Auto) 19.3 (16.0-40.0) % Curry % (Auto) 6.9 (0.0-15.0) % Eos % (Auto) 0.2 (0.0-7.0) % Baso % (Auto) 0.2 (0.0-1.5) % Neut # (Auto) 4.5 (1.4-5.7) K/uL Lymph # (Auto) 1.2 (0.6-2.4) K/uL Curry # (Auto) 0.4 (0.0-0.8) K/uL Eos # (Auto) 0.0 (0.0-0.7) K/uL Baso # (Auto) 0.0 (0.0-0.1) K/uL Nucleated RBC % 0.0 /100WBC Nucleated RBCs # 0 K/uL INR 1.18 APTT (18.6-31.3) SEC Sodium (136-148) mmol/L Potassium (3.5-5.1) mmol/L Chloride (98-107) mmol/L Carbon Dioxide (21.0-32.0) mmol/L BUN (7.0-18.0) mg/dL Creatinine (0.8-1.3) mg/dL Est Cr Clr Drug Dosing mL/min Estimated GFR (MDRD) ml/min Glucose (74-106) mg/dL POC Glucose (60-110) mg/dL Calcium (8.5-10.1) mg/dL Total Bilirubin (0.2-1.0) mg/dL AST (15-37) IU/L ALT (14-63) IU/L Alkaline Phosphatase (46-116) U/L Troponin I (0.000-0.056) ng/mL Total Protein (6.4-8.2) g/dL Albumin (3.4-5.0) g/dL Globulin (2.0-3.5) g/dL Albumin/Globulin Ratio (1.3-2.8) Amylase (25-115) U/L Lipase (73-393) U/L Urine Color YELLOW Urine Appearance CLEAR Urine pH 5.5 (5.0-8.0) Ur Specific [place] 1.020 (1.001-1.035) Urine Protein NEGATIVE (NEGATIVE) mg/dL Urine Glucose (UA) NEGATIVE (NEGATIVE) mg/dL Urine Ketones NEGATIVE (NEGATIVE) mg/dL Urine Occult Blood TRACE-INTACT (NEGATIVE) Urine Nitrite NEGATIVE (NEGATIVE) Urine Bilirubin NEGATIVE (NEGATIVE) Urine Urobilinogen 0.2 (<2.0) EU/dL Ur Leukocyte Esterase NEGATIVE (NEGATIVE) Urine RBC 0-2 (0-2/HPF) Urine WBC 0-1 (0-5/HPF) Ur Epithelial Cells RARE (NONE-FEW) Amorphous Sediment NOT SEEN (NEGATIVE) Urine Bacteria NOT SEEN (NEGATIVE) Urine Mucus NOT SEEN (NONE-MOD) 03/30/18 03/30/18 03/30/18 Range/Units 10:45 15:28 17:33 WBC (4.0-11.0) K/uL RBC (4.50-5.90) M/uL Hgb (13.0-17.0) g/dL Hct (38.0-50.0) % MCV (80.0-98.0) fL MCH (27.0-32.0) pg MCHC (31.0-37.0) g/dL RDW Std Deviation (28.0-62.0) fl RDW Coeff of Codey (11.0-15.0) % Plt Count (150-400) K/uL MPV (7.40-12.00) fL Neut % (Auto) (48.0-80.0) % Lymph % (Auto) (16.0-40.0) % Curry % (Auto) (0.0-15.0) % Eos % (Auto) (0.0-7.0) % Baso % (Auto) (0.0-1.5) % Neut # (Auto) (1.4-5.7) K/uL Lymph # (Auto) (0.6-2.4) K/uL Curry # (Auto) (0.0-0.8) K/uL Eos # (Auto) (0.0-0.7) K/uL Baso # (Auto) (0.0-0.1) K/uL Nucleated RBC % /100WBC Nucleated RBCs # K/uL INR APTT (18.6-31.3) SEC Sodium 142 (136-148) mmol/L Potassium 4.2 (3.5-5.1) mmol/L Chloride 107 (98-107) mmol/L Carbon Dioxide 24.7 (21.0-32.0) mmol/L BUN 12 (7.0-18.0) mg/dL Creatinine 1.3 (0.8-1.3) mg/dL Est Cr Clr Drug Dosing 62.69 mL/min Estimated GFR (MDRD) 56.9 ml/min Glucose 105 (74-106) mg/dL POC Glucose 115 H (60-110) mg/dL Calcium 8.6 (8.5-10.1) mg/dL Total Bilirubin 0.9 (0.2-1.0) mg/dL AST 22 (15-37) IU/L ALT 42 (14-63) IU/L Alkaline Phosphatase 103 (46-116) U/L Troponin I < 0.050 < 0.050 (0.000-0.056) ng/mL Total Protein 6.7 (6.4-8.2) g/dL Albumin 3.5 (3.4-5.0) g/dL Globulin 3.2 (2.0-3.5) g/dL Albumin/Globulin Ratio 1.1 L (1.3-2.8) Amylase 39 (25-115) U/L Lipase 153 (73-393) U/L Urine Color Urine Appearance Urine pH (5.0-8.0) Ur Specific [place] (1.001-1.035) Urine Protein (NEGATIVE) mg/dL Urine Glucose (UA) (NEGATIVE) mg/dL Urine Ketones (NEGATIVE) mg/dL Urine Occult Blood (NEGATIVE) Urine Nitrite (NEGATIVE) Urine Bilirubin (NEGATIVE) Urine Urobilinogen (<2.0) EU/dL Ur Leukocyte Esterase (NEGATIVE) Urine RBC (0-2/HPF) Urine WBC (0-5/HPF) Ur Epithelial Cells (NONE-FEW) Amorphous Sediment (NEGATIVE) Urine Bacteria (NEGATIVE) Urine Mucus (NONE-MOD) 03/30/18 03/30/18 03/31/18 Range/Units 18:57 22:47 00:29 WBC (4.0-11.0) K/uL RBC (4.50-5.90) M/uL Hgb (13.0-17.0) g/dL Hct (38.0-50.0) % MCV (80.0-98.0) fL MCH (27.0-32.0) pg MCHC (31.0-37.0) g/dL RDW Std Deviation (28.0-62.0) fl RDW Coeff of Codey (11.0-15.0) % Plt Count (150-400) K/uL MPV (7.40-12.00) fL Neut % (Auto) (48.0-80.0) % Lymph % (Auto) (16.0-40.0) % Curry % (Auto) (0.0-15.0) % Eos % (Auto) (0.0-7.0) % Baso % (Auto) (0.0-1.5) % Neut # (Auto) (1.4-5.7) K/uL Lymph # (Auto) (0.6-2.4) K/uL Curry # (Auto) (0.0-0.8) K/uL Eos # (Auto) (0.0-0.7) K/uL Baso # (Auto) (0.0-0.1) K/uL Nucleated RBC % /100WBC Nucleated RBCs # K/uL INR APTT 28.2 62.9 H (18.6-31.3) SEC Sodium (136-148) mmol/L Potassium (3.5-5.1) mmol/L Chloride (98-107) mmol/L Carbon Dioxide (21.0-32.0) mmol/L BUN (7.0-18.0) mg/dL Creatinine (0.8-1.3) mg/dL Est Cr Clr Drug Dosing mL/min Estimated GFR (MDRD) ml/min Glucose (74-106) mg/dL POC Glucose (60-110) mg/dL Calcium (8.5-10.1) mg/dL Total Bilirubin (0.2-1.0) mg/dL AST (15-37) IU/L ALT (14-63) IU/L Alkaline Phosphatase (46-116) U/L Troponin I < 0.050 (0.000-0.056) ng/mL Total Protein (6.4-8.2) g/dL Albumin (3.4-5.0) g/dL Globulin (2.0-3.5) g/dL Albumin/Globulin Ratio (1.3-2.8) Amylase (25-115) U/L Lipase (73-393) U/L Urine Color Urine Appearance Urine pH (5.0-8.0) Ur Specific [place] (1.001-1.035) Urine Protein (NEGATIVE) mg/dL Urine Glucose (UA) (NEGATIVE) mg/dL Urine Ketones (NEGATIVE) mg/dL Urine Occult Blood (NEGATIVE) Urine Nitrite (NEGATIVE) Urine Bilirubin (NEGATIVE) Urine Urobilinogen (<2.0) EU/dL Ur Leukocyte Esterase (NEGATIVE) Urine RBC (0-2/HPF) Urine WBC (0-5/HPF) Ur Epithelial Cells (NONE-FEW) Amorphous Sediment (NEGATIVE) Urine Bacteria (NEGATIVE) Urine Mucus (NONE-MOD) 03/31/18 Range/Units 07:13 WBC (4.0-11.0) K/uL RBC (4.50-5.90) M/uL Hgb (13.0-17.0) g/dL Hct (38.0-50.0) % MCV (80.0-98.0) fL MCH (27.0-32.0) pg MCHC (31.0-37.0) g/dL RDW Std Deviation (28.0-62.0) fl RDW Coeff of [place]y (11.0-15.0) % Plt Count (150-400) K/uL MPV (7.40-12.00) fL Neut % (Auto) (48.0-80.0) % Lymph % (Auto) (16.0-40.0) % [place] % (Auto) (0.0-15.0) % Eos % (Auto) (0.0-7.0) % Baso % (Auto) (0.0-1.5) % Neut # (Auto) (1.4-5.7) K/uL Lymph # (Auto) (0.6-2.4) K/uL Curry # (Auto) (0.0-0.8) K/uL Eos # (Auto) (0.0-0.7) K/uL Baso # (Auto) (0.0-0.1) K/uL Nucleated RBC % /100WBC Nucleated RBCs # K/uL INR APTT 45.2 H (18.6-31.3) SEC Sodium (136-148) mmol/L Potassium (3.5-5.1) mmol/L Chloride (98-107) mmol/L Carbon Dioxide (21.0-32.0) mmol/L BUN (7.0-18.0) mg/dL Creatinine (0.8-1.3) mg/dL Est Cr Clr Drug Dosing mL/min Estimated GFR (MDRD) ml/min Glucose (74-106) mg/dL POC Glucose (60-110) mg/dL Calcium (8.5-10.1) mg/dL Total Bilirubin (0.2-1.0) mg/dL AST (15-37) IU/L ALT (14-63) IU/L Alkaline Phosphatase (46-116) U/L Troponin I (0.000-0.056) ng/mL Total Protein (6.4-8.2) g/dL Albumin (3.4-5.0) g/dL Globulin (2.0-3.5) g/dL Albumin/Globulin Ratio (1.3-2.8) Amylase (25-115) U/L Lipase (73-393) U/L Urine Color Urine Appearance Urine pH (5.0-8.0) Ur Specific [place] (1.001-1.035) Urine Protein (NEGATIVE) mg/dL Urine Glucose (UA) (NEGATIVE) mg/dL Urine Ketones (NEGATIVE) mg/dL Urine Occult Blood (NEGATIVE) Urine Nitrite (NEGATIVE) Urine Bilirubin (NEGATIVE) Urine Urobilinogen (<2.0) EU/dL Ur Leukocyte Esterase (NEGATIVE) Urine RBC (0-2/HPF) Urine WBC (0-5/HPF) Ur Epithelial Cells (NONE-FEW) Amorphous Sediment (NEGATIVE) Urine Bacteria (NEGATIVE) Urine Mucus (NONE-MOD) Med Orders - Current: Current Medications Acetaminophen (Tylenol) 650 mg PO Q4H PRN PRN Reason: Pain (mild 1-3) Last Admin: 03/30/18 15:02 Dose: 650 mg Aspirin (Halfprin) 81 mg PO DAILY [facility] Last Admin: 03/31/18 01:31 Dose: 81 mg Atorvastatin Calcium (Lipitor) 40 mg PO Q24H [facility] Last Admin: 03/31/18 01:32 Dose: 40 mg Clopidogrel Bisulfate (Plavix) 75 mg PO DAILY [facility] Last Admin: 03/31/18 01:30 Dose: 75 mg Ezetimibe (Zetia) 10 mg PO Q24H [facility] Last Admin: 03/31/18 01:31 Dose: 10 mg Furosemide (Lasix) 20 mg PO Q24H [facility] Last Admin: 03/31/18 01:32 Dose: 20 mg Heparin Sodium (Porcine) (Heparin Sodium) 1,000 - 2,000 units IV Q6H PRN PRN Reason: PER HEPARIN PROTOCOL aPTT Heparin Sod,Pork In 0.45% Nacl (Heparin-1/2ns 25,000 Units/500) 25,000 unit in 500 mls @ 20 mls/hr IV TITRATE [facility]; Protocol Last Admin: 03/30/18 21:06 Dose: 1,000 units/hr, 20 mls/hr Levothyroxine Sodium (Synthroid) 88 mcg PO ACBREAKFAST [facility] Last Admin: 03/31/18 06:57 Dose: Not Given Metoprolol Succinate (Toprol Xl) 12.5 mg PO Q24H [facility] Last Admin: 03/31/18 01:29 Dose: 12.5 mg Non-Formulary Medication (Patient's Own Medication) 1 tab PO DAILY [facility] Ondansetron HCl (Zofran Odt) 4 mg PO Q4H PRN PRN Reason: nausea, able to take PO Potassium Chloride (Klor-Con 10) 10 meq PO BID@0200,1500 [facility] Sodium Chloride (Saline Flush) 10 ml FLUSH ASDIRECTED PRN PRN Reason: Keep Vein Open Last Admin: 03/30/18 10:38 Dose: 10 ml Sodium Chloride (Saline Flush) 2.5 ml FLUSH ASDIRECTED PRN PRN Reason: Keep Vein Open Last Admin: 03/30/18 10:38 Dose: 2.5 ml Discontinued Medications Enoxaparin Sodium (Lovenox) 40 mg SUBCUT Q24H [facility] Last Admin: 03/30/18 13:57 Dose: 40 mg Heparin Sodium (Porcine) (Heparin Sodium) 4,000 units IVPUSH ONETIME ONE Stop: 03/30/18 18:30 Last Admin: 03/30/18 21:02 Dose: 4,000 units Sodium Chloride (Normal Saline) 1,000 mls @ 999 mls/hr IV STAT ONE Stop: 03/30/18 11:33 Last Admin: 03/30/18 10:37 Dose: 999 mls/hr Labetalol HCl (Normodyne) 20 mg IVPUSH NOW ONE; Protocol Stop: 03/30/18 11:02 Last Admin: 03/30/18 11:07 Dose: 20 mg Nitroglycerin (Nitrostat) Confirm Administered Dose 0.4 mg .ROUTE .STK-MED ONE Stop: 03/30/18 10:34 Last Admin: 03/30/18 10:43 Dose: Not Given Nitroglycerin (Nitrostat) 0.4 mg SL Q5M PRN PRN Reason: Chest Pain Last Admin: 03/30/18 10:46 Dose: 0.4 mg Nitroglycerin (Nitro-Bid 2%) 1 gm TOP ONETIME ONE Stop: 03/30/18 10:53 Last Admin: 03/30/18 11:00 Dose: 1 gm Potassium Chloride (Klor-Con 10) 10 meq PO BID [facility] Last Admin: 03/31/18 01:30 Dose: 10 meq - Exam General: Reports: Alert, Oriented, Cooperative, No Acute Distress Neck: Reports: Supple Lungs: Reports: Clear to Auscultation, Normal Respiratory Effort Cardiovascular: Reports: Regular Rate, Regular Rhythm, No Murmurs GI/Abdominal Exam: Normal Bowel Sounds, Soft, Non-Tender, No Organomegaly Back Exam: Reports: Normal Inspection, Full Range of Motion Extremities: Normal Inspection, Normal Range of Motion, Non-Tender, No Pedal Edema, Normal Capillary Refill Neurological: Reports: No New Focal Deficit Psy/Mental Status: Reports: Alert, Normal Affect, Normal Mood
--- NOTE | 2018-04-02 20:25 | ECHO ---
The echocardiogram report can be seen in this patient's EMR (Electronic Medical Record) in the Reports section. The echocardiogram report has also been scanned into PACS and can be seen there. NICOLÁS
== END 2018-03-31 12:00 ==
LOC: MW.ED 10:20 → MW.MS 12:08
PROVIDERS: ADMIT Internal Medicine; ATTEND Internal Medicine
DX: I20.0 Unstable angina (principal); I16.0 Hypertensive urgency; I25.2 Old myocardial infarction; I25.10 Atherosclerotic heart disease of native coronary artery without angina pectoris; I10 Essential (primary) hypertension; E78.00 Pure hypercholesterolemia, unspecified; E03.9 Hypothyroidism, unspecified; F41.9 Anxiety disorder, unspecified; E66.9 Obesity, unspecified; E78.5 Hyperlipidemia, unspecified; Z87.891 Personal history of nicotine dependence; Z95.5 Presence of coronary angioplasty implant and graft; Z79.82 Long term (current) use of aspirin; Z79.01 Long term (current) use of anticoagulants; Z79.899 Other long term (current) drug therapy; Z68.30 Body mass index [BMI] 30.0-30.9, adult
CPT/HCPCS: 36415; 70450; 70450-26; 71045; 71045-26; 80053; 81001; 82150; 82962; 83690; 84484; 85025; 85610; 85730; 93005; 93306; 96361; 96365; 96366; 96372; 96374; 96375; 96376; 99283; 99285-25; A9270-GY; G0378; J1644; J1650; J3490; J7040